=== PATIENT | female | born 1975 | race Caucasian/White ===

== ENCOUNTER → 2019-05-20 16:24 | Outpatient (CLI) | payer SELFPAY ==
--- NOTE | 2019-05-20 15:30 | EMB_PTH ---
PATIENT: JASVIR THACKER LOC: [facility] U#:[id number] AGE/SX: 50/F ROOM: RE05/20/[address]: Dr. Moe Bray MD : 1975 BED: DIS: SPEC #: [id number] RECD: 05/20/19 16:24 STATUS: YAYO MILEY #: [id number] MEHRAN: 05/20/19 15:[address]: Moe Bray DEPT: SURGICAL PATHOLOGY RECD BY: Michel Smith Tissues: Endometrium, NOS Procedures: Surgery Specimen Level IV HEADER OPERATION: Endometrial biopsy PRE-OP DIAGNOSIS: N92.6 TISSUE SUBMITTED: Endometrial biopsy MICROSCOPIC DIAGNOSIS Endometrial biopsy: Endometrium with breakdown and few cystically dilated glands. No endometrial hyperplasia or neoplasia identified. FA:zay 05/24/19 MICROSCOPIC DESCRIPTION Slides are reviewed. IDC with Dr. Farooq Palafox MD. GROSS DESCRIPTION Received in fixative is one container labeled with the patient's name and designated endometrial biopsy. The specimen consists of multiple irregular fragments of reddish-brown soft tissue that in aggregate measure 1.5 x 1 x 0.3 cm. The specimen is totally submitted in one cassette. / CE:zay 05/21/19 TC:5 CPT: 07242
[2019-05-27 17:08] LABS: HPV Reflexed? NOT INDICATED
== END ==
PROVIDERS: Referring Provider Obstetrics & Gynecology; Visit Provider Obstetrics & Gynecology
DX: Z12.4 Encounter for screening for malignant neoplasm of cervix (principal); N92.6 Irregular menstruation, unspecified
CPT/HCPCS: 87624; 88175; 88305; G0145

== ENCOUNTER 2025-09-09 08:45 | Inpatient (IN) | payer OTHER, SELFPAY ==
[2025-09-09] VITALS (10 sets, daily range): BP systolic 99–136; BP diastolic 53–71; PULSE 61–86; RESP 12–18; TEMP 36.6–37.1; O2SAT 92–100; BMI 30.4
--- NOTE | 2025-09-09 08:50 | PCM.HP.STD ---
HPI - General General Date of Admission: 09/09/25 Date of Service: 09/09/25 Chief Complaint: Rectal bleed bright red more than 10 times HPI Narrative JASVIR THACKER, is a 50 F who came to [place] ED for bright red rectal bleed about 10 times since 3 PM yesterday. She said her toilet water turns red after bowel movement. History of an external hemorrhoids after giving vaginal . Patient stated she put coffee enema in order to detox herself for being healthy. She denies previous history of GI bleed but her father had gastric ulcer. She denies nausea or vomiting but has abdominal sore mainly on her right and upper abdomen. She denies abdominal pain or tenderness. No fever and she was on baseline health before the enema. Labs were done in [place] ED was transferred here for GI bleed and endoscopy. [facility] Allergy/AdvReac Type Severity Reaction Status Date / Time Penicillins (PCN) Allergy Intermediate Rash Verified 09/09/25 08:51 ROS ROS Narrative Constitutional: Mild acute fatigue and weakness. No fever. HEENT: Reports systems reviewed and no addt'l complaints, except as documented Respiratory/Chest: No acute shortness of breath or respiratory distress or wheezing. CVS: No chest pain tightness. Denies chronic cardiac disease, hypertension Gastrointestinal: As described in HPI Genitourinary: Denies burning urination or new urinary tract symptoms Musculoskeletal: Denies acute joint pain or limited range of motion. No acute injury Neurologic: Denies seizure-like symptoms. skin: No ulcer. No rash Endocrinology: Reports systems reviewed and no addt'l complaints, except as documented Hematologic/Lymphatic: Reports systems reviewed and no addt'l complaints, except as documented Rest 14 ROS are negative except as mentioned in HPI Vital Signs Vital Signs Vital Signs: General: Alert, Oriented x3, Cooperative HEENT: Atraumatic, PERRLA, EOMI, Normocephalic. Oral: Oral mucosa dry no Gingival or Mucosal Lesions/ Ulcerations Neck: Supple, No JVD, Negative Carotid Bruits Chest wall/Lungs: Air entry equal in bilateral lung bases. No crepitation/rhonchi Cardiovascular: Regular rate and rhythm, Normal S1,S2, No M/G/R Abdomen: Bowel Sounds Present, Soft, Non Tender, Non-Distended : No dysuria. No renal angle tenderness. No suprapubic tenderness. Extremities: No edema, Capillary Refill Less than 3 Seconds Skin: No rashes, No breakdown Musculoskeletal: No Tenderness to Palpation of Joints or Extremities. ROM full and intact Neurological: Cranial nerves II-XII grossly intact, DTR 2+/4. No acute focal neurological deficit. Psych/Mental Status: Normal Affect, Appropriate. Assessment & Plan Assessment/Plan (1) Acute GI bleeding: PLAN: Plan This is a 50-year-old female admitted for multiple bright red rectal bleed 1. Acute GI bleed seems lower GI bleed: [facility] Labs from [place] reviewed. H&H 12.9/37.6%. Platelet count 400 12K. Musically CBC within normal limit. CMP shows normal electrolytes, albumin 3.4, normal liver chemistry. Anion gap 11. Bicarb 28.4. BUN/creatinine 9/0.56. Occult stool blood positive. INR 1.0. UA SG 1.010, nitrite, cast, bacteria and leukocytes negative, protein and glucose normal. Labs ordered. Monitor H&H. IV pantoprazole 40 mL every 12 hourly. GI consulted for endoscopy. Hemodynamically, blood pressure and heart rate in normal range. Blood group AB+. Antibody negative. CTA of abdomen pelvis was done and mentioned in ED physician note. There is no official report in the chart. As per the ED physician note, no acute abnormality or contrast extravasation into the GI tract. Bilateral ovarian cyst largest on the right measuring 4 x 2.3 cm. Recommend outpatient follow-up. 2. Allergy to penicillin: Patient does not need antibiotic. 3. DVT prophylaxis is low risk. Pharmacological prophylaxis contraindicated because of acute GI bleed but for prophylaxis not indicated. Living will/advanced directive/end of life care: Patient does have living will or advanced directive. Her is next of kin present in the room. After discussion of benefits/risks procedures involved with full code, DNR CC arrest and DNR CC, the patient opted for full code. Patient does want artificial life support including intubation, tube feed, ventilator and/chest compression, central venous catheter, vasopressor and DC shock if needed Total time spent in [id number] encounter in discussion of advanced directive 17 minutes. Charges/Coding Visit Charges Inpatient E&M: 56310 Init Hosp L3 Procedures Hospitalists Procedures: 39511 Advncd Care Plan 30 Min
[2025-09-09] MEDS: Pantoprazole Sodium 40 MG in 0.9% Normal Saline (100mL MB+) 100 ML 300 MG IV ×2 (09:30→19:53)
[2025-09-09] MEDS: Lactated Ringers 1,000 ML 100 ML IV ×2 (09:30→18:32)
[2025-09-09 09:37] LABS: Hematocrit 41.3 % (37-47); Hemoglobin 13.7 g/dL (12.0-15.0); Immature Granulocytes Count 0.020 X10^3/uL (0.0-0.0); Mean Corp Hgb Conc 33.2 g/dL (32-36); Mean Corpuscular Volume 89.0 fL (81-99); Mean Platelet Vol. 8.9 fl (6.2-12.0); NRBC Flagged by Analyzer 0 % (0-5); Platelet Count 437 K/mm3 (150-450); RBC Distribution Width CV 13.7 % (11.6-14.6); RBC Distribution Width SD 44.6 fl (35.1-43.9); Red Blood Count 4.64 M/mm3 (4.2-5.4); White Blood Count 7.8 K/mm3 (4.4-11.0)
[2025-09-09 09:54] LABS: Prothrombin Time (Protime)PT. 13.1 SECONDS (11.7-14.9)
[2025-09-09 10:14] LABS: AST(SGOT) 23 U/L (<=31); Alanine Aminotransfer ALT/SGPT 25 U/L (<=34); Albumin, Serum 4.3 g/dL (3.5-5.0); Alkaline Phosphatase 59 U/L (35-104); Anion Gap 10 (5-15); BUN 7 mg/dL (4-19); BUN/Creat Ratio 12.7 RATIO (10-20); Calcium,Total 8.7 mg/dL (7.6-11.0); Carbon Dioxide 23.9 mmol/L (21.0-32.0); Chloride 106 mmol/L (98-108); Estimated Creatinine Clearance 112.71 ml/min (50-250); Globulin 2.7 g/dL (2.2-4.2); Glucose 103 mg/dL (70-99); Magnesium 2.2 mg/dL (1.5-2.2); Potassium 3.7 mmol/L (3.3-5.1)
--- NOTE | 2025-09-09 10:20 | CASEMGMT ---
Dx:GIB LACE:0 6-Clicks:24 Medical record reviewed and patient evaluated for identification of discharge planning needs. Based on this review, at this time criteria are not present to indicate a need for discharge planning. Will remain available to assist with discharge planning needs as identified or requested.
--- NOTE | 2025-09-09 10:59 | PCM.PRE.AN2 ---
ASA Classification* ASA Classification ASA Classification: 1 and E Assessment & Plan Anesthesia* Anesthesia Assessment Anesthesia Assessment: Discussed sedation and/or anesthesia options, risks, benefits, and alternatives with patient/parents/legal guardian/POA. Questions invited. The patient/parents/legal guardian/POA seems to understand and agrees to proceed with anesthesia plan. Reviewed the physical assessment, medical history, allergy history and patient home medications list prior to surgery/procedure/anesthetic and documented any changes. Performed airway and anesthesia risk assessments. Anesthesia Type Anesthesia Type: MAC History Source History Obtained from:: Patient and Chart Anesthesia Focused Assessment* Temperature: 98.5 F Pulse Rate: 86 Blood Pressure: 136/71 Respiratory Rate: 16 Pulse Ox: 92 Oxygen Delivery Method: Room Air Airway Assessment Mouth opens: >3 cm Mallampati Score: III Teeth Condition: Intact Neck Range of motion (ROM): Full ROM Labs Anesthesia Preop lab: CBC WBC, (4.4-11.0) 7.8 K/mm3 Today, 09:17 RBC, (4.2-5.4) 4.64 M/mm3 Today, 09:17 Hgb, (12.0-15.0) 13.7 g/dL Today, 09:17 Hct, (37-47) 41.3 % Today, 09:17 Plt Count, (150-450) 437 K/mm3 Today, 09:17 CHEMISTRY Potassium, (3.3-5.1) 3.7 mmol/L Today, 09:17 Sodium, (133-145) 140 mmol/L Today, 09:17 Magnesium, (1.5-2.2) 2.2 mg/dL Today, 09:17 Phosphorus, (2.7-4.5) 3.5 mg/dL Today, 09:17 BUN, (4-19) 7 mg/dL Today, 09:17 Creatinine, (0.70-1.20) 0.53 mg/dL L Today, 09:17 Glucose, (70-99) 103 mg/dL H Today, 09:17 COAG PT, (11.7-14.9) 13.1 SECONDS Today, 09:17 Pre-Assessment Diagnosis/Proposed Procedure Planned Operative Procedure(s): colonoscopy Anesthesia History Anesthesia History - membership director: Anesthesia History - membership director Hx Hospitalization Any Problems With Anesthesia No 09/09/25 10:12 Cholinesterase deficiency No 09/09/25 10:12 You/Your Family Experience No 09/09/25 10:12 fever (hyperthermia) with Relationship Recent Exposure to Contagious No 09/09/25 10:12 Disease Does patient have nerve No 09/09/25 10:12 stimulator Patient instructed to have device shut off --Does patient have Pacemaker or ICD? When Was Last Pacemaker Check QUESTION #4 FULL TEXT: You/Your Family Experience fever (hyperthermia) with Anesthesia Last Oral Intake Last Oral intake: Last Oral Intake NPO since 0000 09/09/25 Meds taken in AM with sips of water? Meds patient instructed to take am of surgery PONV PONV - membership director: PONV - membership director Female HX of Motion Sickness HX of N/V After Surgery Non-Smoker Duration of Surgery greater than 60 minutes Number of Risk Factors PONV Score Height & Weight Height & Weight: Anesthesia: Height & Weight Height 5 ft 09/09/25 08:51 Weight: 70.76 kg 09/09/25 08:51 Body Mass Index (BMI) 30.4 09/09/25 08:51 Respiratory Assessment Respiratory Assessment - membership director: Respiratory Tract Infection Hx - membership director Hx Respiratory Tract Infection No 09/09/25 10:12 STOP Sleep Apnea STOP Sleep Apnea - membership director: STOP Sleep Apnea - membership director Hx Hypertension No 09/09/25 08:45 Hx Sleep Apnea No 09/09/25 08:45 CPAP BIPAP Do you snore loudly (louder No 09/09/25 08:45 than talking or can be heard Do you often feel tired/ No 09/09/25 08:45 fatigued/ sleepy during daytime? Has anyone observed you stop No 09/09/25 08:45 breathing during sleep? STOP Results Negative 09/09/25 08:45 QUESTION #5 FULL TEXT : Do you snore loudly (louder than talking or can be heard through closed doors)? 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 Specify any problems Hx of Preganancy in last 3 No 09/09/25 08:45 Months Nurse Filling Out Transfusion [id number] 09/09/25 08:45 & Questions: Date: 09/09/25 09/09/25 08:45 Time: 09:33 09/09/25 08:45 Patient unable to answer at this time (ie. confused, unrespo /Reproduction History /Reproductive History - membership director: /Reproductive Hx- membership director Hx Now No 09/09/25 10:12 Gestational Age (in weeks): EDC: Hx Hx Para Hx Section SAB No 09/09/25 10:12 Active Medications Active Medications: Current Medications Generic Name Dose Route Start Last Admin Trade Name Freq PRN Reason Stop Dose Admin Acetaminophen 650 mg 09/09/25 08:49 Acetaminophen 325 Mg Tablet PO Q6H PRN PRN Pain 1-10 Or Fever>100.7 Pantoprazole Sodium 40 mg/ 100 mls @ 300 mls/hr 09/09/25 10:00 09/09/25 09:50 Sodium Chloride IV Infused Q12 SASCHA Infusion Lactated Ringer's 1,000 mls @ 100 mls/hr 09/09/25 08:45 09/09/25 09:50 IV 09/10/25 04:44 100 mls/hr .Q10H SASCHA Infusion Sodium Chloride 500 mls @ 15 mls/hr 09/09/25 09:01 IV PRN PRN Blood Transfusion Sodium Chloride 250 mls @ 15 mls/hr 09/09/25 09:01 IV .[id number] PRN Saline Flush Sodium Chloride 250 mls @ 15 mls/hr 09/09/25 09:01 IV .[id number] PRN Additional IVPB Infusion Oxycodone HCl 2.5 - 5 mg 09/09/25 08:49 Oxycodone 5 Mg Tablet PO Q4H PRN PRN Pain Score 4-10 Senna/Docusate Sodium 2 tablet 09/09/25 08:49 Senna/Docusate Sodium 1 Tablet PO BID PRN PRN Constipation Sodium Chloride 10 - 40 ml 09/09/25 09:01 0.9% Saline Lock 10 Ml Syringe IV UD PRN SALINE FLUSH PFSH Allergy/AdvReac Type Severity Reaction Status Date / Time Penicillins (PCN) Allergy Intermediate Rash Verified 09/09/25 08:51 Social History Smoking Status: Never smoker Review of Systems (Anesthesia) ROS Narrative System reviewed and no additional complaints, except as documented.
--- NOTE | 2025-09-09 11:53 | EX.PCM.CON.G ---
HPI Consult Data Date of Consult: 09/09/25 HPI Narrative Reason for Consultation: GI bleed HPI Narrative: JASVIR THACKER, is a 50 F who presents as a transfer for the treatment of acute lower GI bleed. She presented to [place] ED for bright red rectal bleed about 10 times since 3 PM yesterday. She said her toilet water turns red after bowel movement. Patient stated she put coffee enema in order to detox herself for being healthy. She denies nausea or vomiting but has abdominal sore mainly on her right and upper abdomen. She denies abdominal pain or tenderness. No fever and she was on baseline health before the enema. [facility] Allergy/AdvReac Type Severity Reaction Status Date / Time Penicillins (PCN) Allergy Intermediate Rash Verified 09/09/25 08:51 Social History Smoking Status: Never smoker ROS ROS Narrative Constitutional: Mild acute fatigue and weakness. No fever. HEENT: Reports systems reviewed and no addt'l complaints, except as documented Respiratory/Chest: No acute shortness of breath or respiratory distress or wheezing. CVS: No chest pain tightness. Denies chronic cardiac disease, hypertension Gastrointestinal: As described in HPI Genitourinary: Denies burning urination or new urinary tract symptoms Musculoskeletal: Denies acute joint pain or limited range of motion. No acute injury Neurologic: Denies seizure-like symptoms. skin: No ulcer. No rash Endocrinology: Reports systems reviewed and no addt'l complaints, except as documented Hematologic/Lymphatic: Reports systems reviewed and no addt'l complaints, except as documented Rest 14 ROS are negative except as mentioned in HPI Physical Exam Const alert, oriented x3, no apparent distress and healthy appearing General Appearance: cooperative GI normal to inspection, nondistended, normoactive bowel sounds, soft to palpation, non-tender and non-distended Percussion: normal to percussion Rectal Exam: deferred Lab / Micro Data 09/09/25 09:17 09/09/25 09:17 Labs: Laboratory Results - last 24 hr 09/09/25 09:17: WBC 7.8, RBC 4.64, Hgb 13.7, Hct 41.3, MCV 89.0, MCH 29.5, MCHC 33.2, RDW Std Deviation 44.6 H, RDW Coeff of Fadi 13.7, Plt Count 437, MPV 8.9, Immature Gran % (Auto) 0.300, Neut % (Auto) 79.8 H, Lymph % (Auto) 13.4 L, [place] % (Auto) 5.7, Eos % (Auto) 0.3, Baso % (Auto) 0.5, Absolute Neuts (auto) 6.2, Absolute Lymphs (auto) 1.04, Nucleated RBC % 0, PT 13.1, INR 1.0, Sodium 140, Potassium 3.7, Chloride 106, Carbon Dioxide 23.9, Anion Gap 10, BUN 7, Creatinine 0.53 L, Estim Creat Clear Calc 112.71, Est GFR (MDRD) Non-Af 114, BUN/Creatinine Ratio 12.7, Glucose 103 H, Calcium 8.7, Phosphorus 3.5, Magnesium 2.2, Total Bilirubin 0.34, AST 23, ALT 25, Alkaline Phosphatase 59, Total Protein 7.0, Albumin 4.3, Globulin 2.7, Albumin/Globulin Ratio 1.6 Assessment & Plan Assessment/Plan (1) Acute GI bleeding: PLAN: Plan This is a 50-year-old female admitted for multiple bright red rectal bleed Acute GI bleed seems lower GI bleed: She will undergo a colonoscopy to evaluate her lower GI tract. She was explained alternatives, risk and benefits, including not withstanding bleeding, infection, sepsis, perforation, need for urgent . She will have an ASA of 3. Charges/Coding Visit Charges Inpatient E&M: 14678 Init Hosp L3
[2025-09-09 12:21] LABS: Internal QC Validated? YES +Cl - CLEAR BKGD; Pregnancy, Urine Negative Negative; Record Kit Lot#,Urine Preg 980607
--- NOTE | 2025-09-09 13:11 | PCM.POST.ANE ---
Anesthesia: Postop Eval I Current Vital Signs Temperature: 98.8 F Pulse Rate: 84 Blood Pressure: 99/65 Respiratory Rate: 18 Pulse Ox: 100 Assessment Airway patent: Yes Spontaneous unlabored respirations: Yes nausea: No Vomiting: No Anesthesia Complication: No Fluid Hydration Crystalloid volume administer (ml): 200 Total IV fluid infused: 200 Progress Note Anesthesia document: Postop Eval 1 completed: Yes
--- NOTE | 2025-09-09 13:15 | OP.COLON_ITS ---
Patient Name: Yazmin Bagley Procedure Date: 09/09/2025 11:52 AM Date of : 1975 Age: 50 Procedure: Colonoscopy Indications: Hematochezia Providers: Jason Reyez DO Referring MD: Janessa Michelle Md Medicines: Monitored Anesthesia Care Patient Profile: This is a 50 year old female. Refer to note in patient chart for documentation of history and physical. Last Colonoscopy: date unknown. Unable to locate last colonoscopy report. Complications: No immediate complications. Procedure: Pre-Anesthesia Assessment: - Prior to the procedure, a History and Physical was performed, and patient medications and allergies were reviewed. The patient is competent. The risks and benefits of the procedure and the sedation options and risks were discussed with the patient. All questions were answered and informed consent was obtained. Patient identification and proposed procedure were verified by the physician in the pre-procedure area. Mental Status Examination: alert and oriented. Airway Examination: normal oropharyngeal airway and neck mobility. Respiratory Examination: clear to auscultation. CV Examination: normal. Prophylactic Antibiotics: The patient does not require prophylactic antibiotics. Prior Anticoagulants: The patient has taken no anticoagulant or antiplatelet agents except for NSAID medication. ASA Grade Assessment: II - A patient with mild systemic disease. After reviewing the risks and benefits, the patient was deemed in satisfactory condition to undergo the procedure. The anesthesia plan was to use monitored anesthesia care (MAC). Immediately prior to administration of medications, the patient was re-assessed for adequacy to receive sedatives. The heart rate, respiratory rate, oxygen saturations, blood pressure, adequacy of pulmonary ventilation, and response to care were monitored throughout the procedure. The physical status of the patient was re-assessed after the procedure. After I obtained informed consent, the scope was passed under direct vision. Throughout the procedure, the patient's blood pressure, pulse, and oxygen saturations were monitored continuously. The Colonoscope was introduced through the anus and advanced to the hepatic flexure. The colonoscopy was performed without difficulty. The patient tolerated the procedure well. The quality of the bowel preparation was poor because she did not prep for the prpcedure. Scope In: 12:51:35 PM Scope Out: 1:02:23 PM Total Procedure Duration Time 0 hours 10 minutes 48 seconds Findings: The perianal and digital rectal examinations were normal. A bleeding deep mucosal tear that was pre-existing (pre-procedure) was found in the rectum. This measured 30 mm in length. To repair the defect, the tissue edges were approximated and one hemostatic clip was successfully placed. Closure of the defect was successful. Clip endodontic assistant: Private [facility]. There was no bleeding at the end of the procedure. Coagulation for tissue destruction using argon plasma at 0.8 liters/minute and 20 laws was successful. Stool was found in the descending colon, at the splenic flexure, at the hepatic flexure, in the ascending colon and in the cecum. Impression: - Deep mucosal tear in the rectum. Clip was placed. Clip endodontic assistant: Private Practice. Treated with argon plasma coagulation (APC). - Stool in the descending colon, at the splenic flexure, at the hepatic flexure, in the ascending colon and in the cecum. - No specimens collected. Recommendation: - Discharge patient to home. - Resume previous diet. - Continue present medications. - Repeat colonoscopy in 4 months for surveillance. Procedure Code(s): --- Professional --- 25592, 52, Colonoscopy, flexible; with ablation of tumor(s), polyp(s), or other lesion(s) (includes pre- and post-dilation and guide wire passage, when performed) 52569, 59,51,52, Colonoscopy, flexible; with control of bleeding, any method CPT copyright 2021 [employer]. All rights reserved. The codes documented in this report are preliminary and upon lactation coordinator review may be revised to meet current compliance requirements. Jason Reyez DO 09/09/2025 1:14:55 PM This report has been signed electronically. Number of Addenda: 0 Note Initiated On: 09/09/2025 11:52 AM
--- NOTE | 2025-09-09 13:15 | OP.PROVAT_ITS ---
09/09/2025 Moe Guallpa [address] [place] [address] Re : Colonoscopy procedure for Yazmin Bagley Dear Dr. Guallpa This procedure was performed on Tuesday, September 09, 2025. My impressions and recommendations are as follows: Impressions : - Deep mucosal tear in the rectum. Clip was placed. 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 Treated with argon plasma coagulation (APC). - Stool in the descending colon, at the splenic flexure, at the hepatic flexure, in the ascending colon and in the cecum. - No specimens collected. Recommendations : - Discharge patient to home. - Resume previous diet. - Continue present medications. - Repeat colonoscopy in 4 months for surveillance. My findings are described in the full procedure note, which is enclosed. If I can be of further assistance, please feel free to contact me at . Sincerely, Jason Friend, 09/09/2025 1:14:55 PM This report has been signed electronically.
[2025-09-09 13:38] LABS: Hematocrit 36.2 % (37-47); Hemoglobin 12.0 g/dL (12.0-15.0)
--- NOTE | 2025-09-09 16:27 | POSTOPAN2_ITS ---
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 Spontaneous unlabored Yes 09/09/25 13:11 MULTI OPERATION FORMING MACHINE SETTER.CSIR respirations Mental status nausea No 09/09/25 13:11 MULTI OPERATION FORMING MACHINE SETTER.CSIR Vomiting No 09/09/25 13:11 MULTI OPERATION FORMING MACHINE SETTER.CSIR Anesthesia Postop Eval I: Fluid Summary Crystalloid volume administer 200 09/09/25 13:11 MULTI OPERATION FORMING MACHINE SETTER.CSIR (ml) Colloids volume administered ( ml) Blood Product volume administered (ml) Total IV fluid infused 200 09/09/25 13:11 MULTI OPERATION FORMING MACHINE SETTER.CSIR Anesthesia Postop Eval I: Summary Notes Anesthesia Complication No 09/09/25 13:11 MULTI OPERATION FORMING MACHINE SETTER.CSIR Anesthesia Complication Comment: Post-operative progress note Anesthesia: Postop Eval II Evaluation Mental status: Awake and Calm Pain Level: 0 nausea: No Vomiting: No Complications Anesthesia Complication: No
--- NOTE | 2025-09-09 16:27 | PCM.POSTANE2 ---
Anesthesia Postop Eval I Sum Postop Eval Completion status Anesthesia document: Postop Eval 1 completed: Yes Anesthesia Postop Eval I Summary Anesthesia Postop Eval I Summary: Anesthesia Postop Eval I: Assessment Summary Airway patent Yes 09/09/25 13:11 ENGINEERING CLERK.CSIR Spontaneous unlabored Yes 09/09/25 13:11 ENGINEERING CLERK.CSIR respirations Mental status nausea No 09/09/25 13:11 ENGINEERING CLERK.CSIR Vomiting No 09/09/25 13:11 ENGINEERING CLERK.CSIR Anesthesia Postop Eval I: Fluid Summary Crystalloid volume administer 200 09/09/25 13:11 ENGINEERING CLERK.CSIR (ml) Colloids volume administered ( ml) Blood Product volume administered (ml) Total IV fluid infused 200 09/09/25 13:11 ENGINEERING CLERK.CSIR Anesthesia Postop Eval I: Summary Notes Anesthesia Complication No 09/09/25 13:11 ENGINEERING CLERK.CSIR Anesthesia Complication Comment: Post-operative progress note Anesthesia: Postop Eval II Evaluation Mental status: Awake and Calm Pain Level: 0 nausea: No Vomiting: No Complications Anesthesia Complication: No
[2025-09-09 19:31] LABS: Hematocrit 39.1 % (37-47); Hemoglobin 12.9 g/dL (12.0-15.0)
[2025-09-10 01:12] LABS: Hematocrit 34.4 % (37-47); Hemoglobin 11.4 g/dL (12.0-15.0)
[2025-09-10 04:10] VITALS: BP 120/49; PULSE 67; RESP 16; TEMP 36.6; O2SAT 100
[2025-09-10 05:21] LABS: Hematocrit 36.4 % (37-47); Hemoglobin 12.1 g/dL (12.0-15.0); Immature Granulocytes Count 0.030 X10^3/uL (0.0-0.0); Mean Corp Hgb Conc 33.2 g/dL (32-36); Mean Corpuscular Volume 88.1 fL (81-99); Mean Platelet Vol. 8.9 fl (6.2-12.0); NRBC Flagged by Analyzer 0 % (0-5); Platelet Count 376 K/mm3 (150-450); RBC Distribution Width CV 13.9 % (11.6-14.6); RBC Distribution Width SD 44.9 fl (35.1-43.9); Red Blood Count 4.13 M/mm3 (4.2-5.4); White Blood Count 6.7 K/mm3 (4.4-11.0)
[2025-09-10 05:49] LABS: Anion Gap 8 (5-15); BUN 8 mg/dL (4-19); BUN/Creat Ratio 16.0 RATIO (10-20); Calcium,Total 8.4 mg/dL (7.6-11.0); Carbon Dioxide 24.0 mmol/L (21.0-32.0); Chloride 107 mmol/L (98-108); Estimated Creatinine Clearance 119.47 ml/min (50-250); Glucose 97 mg/dL (70-99); Potassium 4.2 mmol/L (3.3-5.1)
[2025-09-10 08:15] VITALS: BP 124/56; PULSE 52; RESP 16; TEMP 36.6; O2SAT 100
--- NOTE | 2025-09-10 11:01 | DCINST_ITS ---
Discharge Instructions DC O2, CPAP, BIPAP needs Home O2 Discharge instructions: No Dressing / Incision Discharge Activity: Return to Normal Activity Weight Bearing Status: Weight bearing as tolerated Dressing / Incision Call your doctor if you observe: Fever of 101 or Higher, Coldness, Increased Pain, Numbness or Tingling, Change in Color, Inability to urinate, Inability to have a bowel movement, Shortness of breath, Dizziness, Fainting spells, Swelling in the ankles, Chest pain, Prolonged hiccupping, Increased palpitations (irregular heartbeat) and Calf discomfort Follow Up Care When: IN 2 WEEKS Test Results: Test results from this visit will be discussed in further detail at your follow- up appointment, if applicable. Discharge Plan Admission Admit Date/Time: 09/09/25 08:45 Primary Reason for Your Visit: acute lower GI Bleed Attending Provider: Sukhwinder Washington Primary Care Provider: Moe Guallpa Consulting Providers: Janessa Michelle; Sukhwinder Washington; Jason Reyez; Lizabeth Pollock; Briseyda Machado; Chelsie Lou Discharge Orders/Prescriptions Prescriptions: New sennosides-docusate sodium [Stimulant Laxative Plus] 8.6-50 mg Tablet 2 tab PO BID PRN (Reason: Constipation) Qty: 0 0RF Rx Instructions: OVER THE COUNTER polyethylene glycol 3350 [GentleLax] 17 gram/dose powder 17 g PO DAILY 30 Days Qty: 510 0RF ascorbic acid (vitamin C) 1,000 mg tablet 1,000 mg PO DAILY 30 Days Qty: 30 2RF ferrous sulfate 325 mg (65 mg iron) tablet 325 mg PO QODAY Qty: 30 2RF Referrals / Follow Up: Moe Guallpa MD [Primary Care Provider, Family Practice] - Within 1 Week Chelsie Lou PA [Med Staff - [facility] Practice Prof, Gastroenterology] - Within 1 Month Referral Note: lower gi bleed, rectal tear Disposition Disposition (needs filled in before D/C Order can be placed): Home, Self Care
--- NOTE | 2025-09-10 11:06 | DS.PCM_ITS ---
Providers Date of Admission: 09/09/25 Date of Discharge: 09/10/25 Primary Care Physician: Dr. Moe Guallpa MD Consultations 09/09/25 08:46 Consult: Gastroenterology Routine Consulting Provider: [facility] Reason for Consult: GI bleed EMERGENT Consult: No MD Notified: Yes Date Notified: 09/09/25 Time Notified: 07:46 Method of Notification: ED Physician Initiated Comments:: by outside ED physician Reason For Visit: GI BLEED Diagnosis Discharge Diagnosis (1) Acute GI bleeding: Status: Acute Code(s): K92.2 - Gastrointestinal hemorrhage, unspecified Plan This is a 50-year-old female admitted for multiple bright red rectal bleed 1. Acute GI bleed seems lower GI bleed: [facility] Labs from [place] reviewed. H&H 12.9/37.6%. Platelet count 400 12K. Musically CBC within normal limit. CMP shows normal electrolytes, albumin 3.4, normal liver chemistry. Anion gap 11. Bicarb 28.4. BUN/creatinine 9/0.56. Occult stool blood positive. INR 1.0. UA SG 1.010, nitrite, cast, bacteria and leukocytes negative, protein and glucose normal. Labs ordered. Monitor H&H. IV pantoprazole 40 mL every 12 hourly. GI consulted for endoscopy. Hemodynamically, blood pressure and heart rate in normal range. Blood group AB+. Antibody negative. CTA of abdomen pelvis was done and report reviewed. There is no official report in the chart. As per the ED physician note, no acute abnormality or contrast extravasation into the GI tract. Bilateral ovarian cyst largest on the right measuring 4 x 2.3 cm. Recommend outpatient follow-up. 09/10: Colonoscopy on 09/09/2025. H&H 12.1/36.4%. No significant drop in H&H it was 13.7 and then 12.9. Does not meet criteria for acute blood loss anemia. Prescription given for ferrous sulfate and ascorbic acid. Impression: - Deep mucosal tear in the rectum. Clip was placed. 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 Treated with argon plasma coagulation (APC). - Stool in the descending colon, at the splenic flexure, at the hepatic flexure, in the ascending colon and in the cecum. - No specimens collected. Recommendation: - Discharge patient to home. - Resume previous diet. - Continue present medications. - Repeat colonoscopy in 4 months for surveillance. Patient advised against coffee enema. Discharged on laxatives, MiraLAX and senna S, ferrous sulfate and ascorbic acid. Follow-up in GI office in 1 month. 2. Allergy to penicillin: Patient does not need antibiotic. 3. DVT prophylaxis is low risk. Pharmacological prophylaxis contraindicated because of acute GI bleed but for prophylaxis not indicated. Living will/advanced directive/end of life care: Patient does have living will or advanced directive. Her is next of kin present in the room. After discussion of benefits/risks procedures involved with full code, DNR CC arrest and DNR CC, the patient opted for full code. Patient does want artificial life support including intubation, tube feed, ventilator and/chest compression, central venous catheter, vasopressor and DC shock if needed Discharge medication reconciliation done. Discharge follow-up instructions completed. Discharge process discussed with the patient and all questions were answered to patient's satisfaction. Follow with PCP in 1 to 2 weeks Total time spent, exact 35 minutes on discharge meds reconciliation, examination, coordination of care with nurses and ancillary staff, review of imaging and blood test and discussion with the patient on follow-up instructions. Medications at Discharge Home Medications ascorbic acid (vitamin C) 1,000 mg tablet 1,000 mg PO DAILY 1 month #30 tabs 09/10/25 ferrous sulfate 325 mg (65 mg iron) tablet 325 mg PO QODAY #30 tabs 09/10/25 polyethylene glycol 3350 17 gram/dose oral powder (GentleLax) 17 g PO DAILY 1 month #510 grams 09/10/25 sennosides 8.6 mg-docusate sodium 50 mg tablet (Stimulant Laxative Plus) 2 tab PO BID PRN Constipation #0 tabs 09/10/25 Physical Exam Narrative Seen and examined Patient is doing well. No acute issues. Wants to go home. Physical exam General: Alert, Oriented x3, Cooperative HEENT: Atraumatic, PERRLA, EOMI, Normocephalic. Oral: Oral mucosa dry no Gingival or Mucosal Lesions/ Ulcerations Neck: Supple, No JVD, Negative Carotid Bruits Chest wall/Lungs: Air entry equal in bilateral lung bases. No crepitation/rhonchi Cardiovascular: Regular rate and rhythm, Normal S1,S2, No M/G/R Abdomen: Bowel Sounds Present, Soft, Non Tender, Non-Distended : No dysuria. No renal angle tenderness. No suprapubic tenderness. Extremities: No edema, Capillary Refill Less than 3 Seconds Skin: No rashes, No breakdown Musculoskeletal: No Tenderness to Palpation of Joints or Extremities. ROM full and intact Neurological: Cranial nerves II-XII grossly intact, DTR 2+/4. No acute focal neurological deficit. Psych/Mental Status: Normal Affect, Appropriate. Weight / BMI Weight Weight: 156 lb Body Mass Index (BMI) 30.4 ABG / Lab / Microbiology Data 09/10/25 04:49 09/10/25 04:49 Laboratory: Laboratory Results - last 24 hr 09/09/25 12:07: Urine Test Negative 09/09/25 13:14: Hgb 12.0, Hct 36.2 L 09/09/25 19:18: Hgb 12.9, Hct 39.1 09/10/25 01:03: Hgb 11.4 L, Hct 34.4 L 09/10/25 04:49: WBC 6.7, RBC 4.13 L, Hgb 12.1, Hct 36.4 L, MCV 88.1, MCH 29.3, MCHC 33.2, RDW Std Deviation 44.9 H, RDW Coeff of Fadi 13.9, Plt Count 376, MPV 8.9, Immature Gran % (Auto) 0.500, Neut % (Auto) 68.3, Lymph % (Auto) 20.5, Morgan % (Auto) 8.7, Eos % (Auto) 1.5, Baso % (Auto) 0.5, Absolute Neuts (auto) 4.6, Absolute Lymphs (auto) 1.36, Nucleated RBC % 0, Sodium 139, Potassium 4.2, Chloride 107, Carbon Dioxide 24.0, Anion Gap 8, BUN 8, Creatinine 0.50 L, Estim Creat Clear Calc 119.47, Est GFR (MDRD) Non-Af 115, BUN/Creatinine Ratio 16.0, Glucose 97, Calcium 8.4 D/C Instructions Weight Bearing Status: Weight bearing as tolerated Call your doctor if you observe: Fever of 101 or Higher, Coldness, Increased Pain, Numbness or Tingling, Change in Color, Inability to urinate, Inability to have a bowel movement, Shortness of breath, Dizziness, Fainting spells, Swelling in the ankles, Chest pain, Prolonged hiccupping, Increased palpitations (irregular heartbeat) and Calf discomfort DC O2, CPAP, BIPAP Needs Home O2 Discharge instructions: No When: IN 2 WEEKS Meaningful Use Info Meaningful Use Meaningful Use Diagnoses (Choose all that apply): None applicable Discharge Plan Admission Admit Date/Time: 09/09/25 08:45 Primary Reason for Your Visit: acute lower GI Bleed Attending Provider: Sukhwinder Washington Primary Care Provider: Moe Guallpa Consulting Providers: Janessa Michelle; Sukhwinder Washington; Jason Reyez; Lizabeth Pollock; Briseyda Machado; Chelsie Lou Discharge Orders/Prescriptions Prescriptions: New sennosides-docusate sodium [Stimulant Laxative Plus] 8.6-50 mg Tablet 2 tab PO BID PRN (Reason: Constipation) Qty: 0 0RF Rx Instructions: OVER THE COUNTER polyethylene glycol 3350 [GentleLax] 17 gram/dose powder 17 g PO DAILY 30 Days Qty: 510 0RF ascorbic acid (vitamin C) 1,000 mg tablet 1,000 mg PO DAILY 30 Days Qty: 30 2RF ferrous sulfate 325 mg (65 mg iron) tablet 325 mg PO QODAY Qty: 30 2RF Referrals / Follow Up: Moe Guallpa MD [Primary Care Provider, [facility]] - Within 1 Week Chelsie Lou PA [Med Staff - [facility] Practice Prof, Gastroenterology] - Within 1 Month Referral Note: lower gi bleed, rectal tear Disposition Disposition (needs filled in before D/C Order can be placed): Home, Self Care Charges/Coding Visit Charges Inpatient E&M: 99976 Disch Hosp >30min
== END 2025-09-10 11:35 | disposition home or self-care (01) | DRG 379 ==
PROVIDERS: Anesthesiology; Internal Medicine Gastroenterology; Admitting Provider Internal Medicine; PCP Family Medicine; Referring Provider Internal Medicine; Visit Provider Internal Medicine
PROC: 0DJD8ZZ Inspection of Lower Intestinal Tract, Via Natural or Artificial Opening Endoscopic (ICD-10-PCS; CPT 45378; principal; 2025-09-09 11:25)
DX: K92.2 Gastrointestinal hemorrhage, unspecified (principal)
CPT/HCPCS: 36415; 80048; 80053; 81025; 83735; 84100; 85014; 85018; 85025; 85610; 94668; J2405